=== PATIENT | male | born 1990 | race Caucasian/White ===

== ENCOUNTER → 2019-05-01 | Day surgery (SDC) | payer OTHER ==
[~2019-05-01] MED LIST: ACETAMINOPHEN/CODEINE 300MG - 30MG TAB ONE; CEFAZOLIN SOD 1 GM/NS 50ML 50 ML IV ONE; DEXAMETHASONE SOD PHOS INJ 4 MG/ML VIAL ONE; FENTANYL CITRATE/PF 100MCG/2 ML INJ ONE; LIDOCAINE HCL 2% LOCAL INJ 5 ML SDV VIAL INJ ONE; MEPERIDINE HCL INJ 25 MG/ML VIAL ONE; ONDANSETRON HCL INJ 2MG/ML 2ML 2 MG/ML VIAL ONE; PROPOFOL IV EMULSION 10 MG/ML 20 ML VIAL ONE; SEVOFLURANE INHAL SOLN 250 ML PEN BTL ONE
--- NOTE | 2019-05-01 07:15 | NUR ---
SPIRITUAL CARE - Pre-Surgery Assessment: Pt in bed. Pt's father at bedside. Pt reported supportive attention from family and friends. Intervention: I provided pastoral presence, hospitality, and sympathetic listening. I acquainted pt with availability of branch billing payroll clerk while hospitalized. Outcome: Pt expressed appreciation for visit. No need for follow up indicated at this time. [facility] Department O: [phone] Pager: [phone] ([phone] calling from)
[2019-05-01 09:40] VITALS: BP 138/88
--- NOTE | 2019-05-01 17:23 | Operative Report ---
DATE OF PROCEDURE: 05/01/2019 SURGEON: Dwaine Minor MD MOVER: Carl Doherty, certified PA. PREOPERATIVE DIAGNOSIS: Left knee pain. POSTOPERATIVE DIAGNOSIS: Left knee pain. PROCEDURE: Left knee diagnostic arthroscopy. INDICATIONS: The patient is a 28-year-old gentleman, who is complaining of intractable left knee pain. There is no history of trauma. He has had an MRI, that has not shown any clear explanation for his symptoms. He has been treated with anti-inflammatories, physical therapy, a corticosteroid injection, and a Medrol Dosepak. He states the symptoms remain severe and prevent him from being able to do his job. The option of a diagnostic arthroscopy was explained. The possibility of not finding any discrete pathology was explained. He states he understands and wishes to proceed. PROCEDURE IN DETAIL: The patient was brought to the operating room and placed under general anesthetic. His left lower extremity was prepped and draped in a sterile manner. A preoperative time-out was performed. The extremity had been exsanguinated and a proximal tourniquet was inflated to 300 mmHg. Standard arthroscopy portals were established. The knee was insufflated with sterile saline and systematically inspected. Because of his severe symptoms and normal MRI, I was particularly careful to document and photograph all areas of the knee. The suprapatellar pouch, medial and lateral gutters, medial compartment, medial meniscus, anterior and posterior cruciate ligaments, and the lateral compartment and lateral meniscus were all carefully inspected and probed, I found no evidence of any pathology. There was no evidence of a medial parapatellar plica. The arthroscopic instruments were removed. The portal incisions were closed with nylon stitches. A sterile bandage was applied. The patient was extubated and transported to the recovery room in stable condition. There was no blood loss and all needle and sponge counts were correct. Dwaine Minor MD DR/CRISTOFER /[id number]
== END | disposition home or self-care (01) ==
LOC: OR 06:04
PROVIDERS: ATTEND Specialist
DX: M25.562 Pain in left knee (principal); F17.210 Nicotine dependence, cigarettes, uncomplicated
CPT/HCPCS: 29870; J0690; J1100; J2001; J2175; J2405; J2704; J3010